=== PATIENT | female | born 1970 | race Caucasian/White ===

== ENCOUNTER 2019-03-03 10:33 | Emergency (ER) | payer BC ==
[2019-03-03 11:18] VITALS: BP 132/79
--- NOTE | 2019-03-03 11:23 | UC ---
Skin Complaint HPI - HPI Summary HPI Summary: 48 year old female presents with complaint of being stung by an insect on her right thumb yesterday. Today she notes redness, swelling, itching, warmth of the dorsum of her hand. Denies fever, does note redness has traveled up to her wrist. She denies bee sting allergy. - History of Current Complaint Chief Complaint: UCSkin Time Seen by Provider: 03/03/19 11:12 Stated Complaint: BEE STING - RIGHT HAND/WRIST SWELLING Hx Obtained From: Patient Hx Last Menstrual Period: 02/11/19 Onset/Duration: Sudden Onset Skin Exposure Onset/Duration: Hours Ago Pain Intensity: 4 Location: Discrete, Hand (Right) Aggravating Factor(s): Nothing Alleviating Factor(s): Nothing Associated Signs & Symptoms: Positive: Negative, Rash. Negative: Nausea, Vomiting, Chills, Wheezing, Throat Tightening Related History: Insect Bite/Sting - Allergy/Home Medications Allergies/Adverse Reactions: Allergies Allergy/AdvReac Type Severity Reaction Status Date / Time No Known Allergies Allergy Verified 03/03/19 11:19 Home Medications: Home Medications Loratadine/Pseudoephedrine [Claritin-D 24 Hour Tablet] 1 tab PO DAILY PRN [History Confirmed 03/03/19] diphenhydrAMINE HCl [Benadryl Allergy 25 MG CAP] 25 mg PO ONCE PRN 03/03/19 [ History Confirmed 03/03/19] PMH/Surg Hx/FS Hx/Imm Hx Previously Healthy: Yes - Surgical History Surgical History: Yes Surgery Procedure, Year, and Place: D & C -2002. - Family History Known Family History: Positive: Non-Contributory - Social History Alcohol Use: Rare Substance Use Type: None Smoking Status (MU): Never Smoked Tobacco Review of Systems All Other Systems Reviewed And Are Negative: Yes Constitutional: Negative: Fever, Chills, Fatigue Skin: Positive: Rash. Negative: Bruising Eyes: Positive: Negative ENT: Negative: Sore Throat, Nasal Discharge, Sinus Congestion Respiratory: Negative: Shortness Of Breath, Cough Cardiovascular: Negative: Palpitations, Chest Pain Gastrointestinal: Negative: Vomiting, Diarrhea, Nausea Motor: Positive: Other - striffness of fingers on right hand due to swelling.. Negative: Decreased ROM, Weakness Neurovascular: Negative: Decreased Sensation, Decreased Pulses Musculoskeletal: Positive: Negative Neurological: Negative: Headache, Weakness, Paresthesia Psychological: Positive: Negative, Anxious Is Patient Immunocompromised?: No Physical Exam Triage Information Reviewed: Yes Appearance: Well-Appearing, No Pain Distress, Well-Nourished Vital Signs: Initial Vital Signs Temp 98.2 F 03/03/19 11:09 Pulse 75 03/03/19 11:09 Resp 16 03/03/19 11:09 BP 132/79 03/03/19 11:09 Pulse Ox 100 03/03/19 11:09 Vital Signs Reviewed: Yes Eyes: Positive: Conjunctiva Clear ENT: Positive: Normal ENT inspection, Pharynx normal, TMs normal Neck: Positive: Supple, Nontender, No Lymphadenopathy Respiratory: Positive: Lungs clear, Normal breath sounds Cardiovascular: Positive: RRR, No Murmur, Brisk Capillary Refill Abdomen Description: Positive: Nontender, Soft Musculoskeletal: Positive: Strength Intact, ROM Intact, Other: - swelling, erythema and warmth dorsum or right hand. Course/Dx - Diagnoses Provider Diagnosis: Insect bite, Cellulitis of right hand Discharge - Sign-Out/Discharge Documenting (check all that apply): Patient Departure All imaging exams completed and their final reports reviewed: No Studies - Discharge Plan Condition: Stable Disposition: HOME Prescriptions: Cephalexin CAP* [Keflex 500 CAP*] 500 mg PO TID 5 Days #15 cap Patient Education Materials: Insect Bite or Sting (ED) Referrals: Mavis Mann MD [Primary Care Provider] - Additional Instructions: Keep right hand elevated, ice as needed. Take all antibiotic as prescribed. May take ibuprofen as needed for pain and Benadryl as needed for swelling. If you develop severe right hand pain or notice discoloration/blue fingers proceed to the Emergency Department for further evaluation. - Billing Disposition and Condition Condition: STABLE Disposition: Home
== END 2019-03-03 11:56 | disposition home or self-care (01) ==
LOC: UCCORT 10:33
DX: T63.441A Toxic effect of venom of bees, accidental (unintentional), initial encounter (principal); M79.89 Other specified soft tissue disorders; L98.9 Disorder of the skin and subcutaneous tissue, unspecified; Y92.9 Unspecified place or not applicable; L03.113 Cellulitis of right upper limb
CPT/HCPCS: 99212; G0463

== ENCOUNTER 2019-05-19 15:54 | Emergency (ER) | payer BC ==
--- OUTSIDE RECORDS SUMMARY | 2019-05-19 16:20 | XMS REPORT | Continuity of Care Document ---
:1970 External Reference #:[id number] Author Name Marleen Day MD (transmitted by agent of provider Caro Guzman) Address [address] [place] [address] Care Team Providers Name Role Phone Mavis Mann MD Care Team Information [employer] Cleaner Hand [phone] Problems Description No Information Available Social History Type Date Description Comments Sex Unknown Tobacco Use Start: Unknown Patient has never smoked Smoking Status Reviewed: 04/26/19 Patient has never smoked Allergies, Adverse Reactions, Alerts Description No Known Drug Allergies Medications Active Medications SIG Qnty Indications Ordering Provider Date Vitamin D Unknown Vitamin B Complex Unknown Hair Nourishing Supplement Unknown Immunizations Description No Information Available Vital Signs Date Vital Result Comment 04/26/2019 3:17pm BP Systolic 114 mmHg BP Diastolic 66 mmHg Height 62 inches 5'2" Weight 115.00 lb BMI (Body Mass Index) 21.0 kg/m2 Last Menstrual Period [id number] 3 Parity 2 2005 9:51am BP Systolic 110 mmHg BP Diastolic 70 mmHg Weight 116.00 lb Results Description No Information Available Procedures Date Code Description Status 02/18/2019 58884390 Mammogram Completed 07/17/2011 [id number] Colonoscopy Completed Medical Devices Description No Information Available Encounters Description No Information Available Assessments Description No Information Available Plan of Treatment No Information Available Functional Status Description No Information Available Mental Status Description No Information Available Referrals Description No Information Available
[2019-05-19 16:29] VITALS: BP 123/77
[2019-05-19] MEDS ORDERED: DOXYcycline CAP(*) 100 MG PO ONE (16:39)
--- NOTE | 2019-05-19 16:50 | UC ---
General HPI - HPI Summary HPI Summary: Patient is a 48-year-old female presenting with tick bite to back of her neck that she noticed a welt pressures are. Patient states she removed the tick was concerned because she noticed a rash around it. She is unsure of how long it was attached. Denies drainage and warmth. Denies fever and chills. Denies n/v. - History of Current Complaint Chief Complaint: UCGeneralIllness Stated Complaint: TICK BITE Hx Obtained From: Patient Hx Last Menstrual Period: 01/14/19 Pain Intensity: 0 - Allergy/Home Medications Allergies/Adverse Reactions: Allergies Allergy/AdvReac Type Severity Reaction Status Date / Time No Known Allergies Allergy Verified 03/03/19 11:19 Home Medications: Home Medications NK [No Home Medications Reported] 05/19/19 [History Confirmed 05/19/19] PMH/Surg Hx/FS Hx/Imm Hx Previously Healthy: Yes - Surgical History Surgical History: Yes Surgery Procedure, Year, and Place: D & C -2002. - Family History Known Family History: Positive: Non-Contributory - Social History Alcohol Use: Rare Substance Use Type: None Smoking Status (MU): Never Smoked Tobacco Review of Systems All Other Systems Reviewed And Are Negative: No Constitutional: Positive: Negative. Negative: Fever, Chills Skin: Positive: Other - tick bite to back of neck Respiratory: Positive: Negative Cardiovascular: Positive: Negative Gastrointestinal: Positive: Negative Musculoskeletal: Positive: Negative Neurological: Positive: Negative Physical Exam Triage Information Reviewed: Yes Appearance: Well-Appearing, No Pain Distress, Well-Nourished Vital Signs: Initial Vital Signs Temp 98.9 F 05/19/19 16:22 Pulse 77 05/19/19 16:22 Resp 16 05/19/19 16:22 BP 123/77 05/19/19 16:22 Pulse Ox 99 05/19/19 16:22 Vital Signs Reviewed: Yes Eyes: Positive: Conjunctiva Clear ENT: Positive: Hearing grossly normal Neck: Positive: Supple Respiratory: Positive: No respiratory distress Neurological: Positive: Alert Psychological: Positive: Age Appropriate Behavior Skin: Positive: Other - 1cm area of erythema noted in hairline of posterior neck. no sign of infection Course/Dx - Course Course Of Treatment: I treated with a one-time prophylactic dose of Doxy. Educated patient on tick bites and Lyme disease and instructed to follow up with PCP if needed. Educated on signs and symptoms of infected tick bite and to return or go to ED if they occur. Patient was understanding and agreed with the treatment plan. - Diagnoses Provider Diagnosis: Tick bite of neck Discharge ED - Sign-Out/Discharge Documenting (check all that apply): Patient Departure All imaging exams completed and their final reports reviewed: No Studies - Discharge Plan Condition: Stable Disposition: HOME Patient Education Materials: Tick Bite (ED) Referrals: Mavis Mann MD [Primary Care Provider] - If Needed Additional Instructions: As discussed, take the one-time dose of Doxycycline to prevent Lyme Disease. It is recommended that you take this with food to avoid stomach upset. No further treatment is required. Follow up with your PCP if you experience a rash where you were the tick bit you within the next month. Return or go to the emergency room if within the next few days you experience fever, nausea and vomiting, or increasing redness, warmth, or drainage from the area. - Billing Disposition and Condition Condition: STABLE Disposition: Home - Attestation Statements Provider Attestation: I was available for consult. This patient was seen by the SANDRA. The patient was not presented to, seen by, or examined by me. -Praveena
== END 2019-05-19 16:52 | disposition home or self-care (01) ==
LOC: UCEAST 15:54
DX: S10.96XA Insect bite of unspecified part of neck, initial encounter (principal); W57.XXXA Bitten or stung by nonvenomous insect and other nonvenomous arthropods, initial encounter; Y92.9 Unspecified place or not applicable
CPT/HCPCS: 99212; A9270-GY; G0463